=== PATIENT | female | born 1985 | race Two or more races ===

== ENCOUNTER 2019-03-02 16:11 | Emergency (ER) | payer OTHER ==
[~2019-03-02] VITALS: Ht 157.5 cm; Wt 111.4 kg
[2019-03-02] MEDS ORDERED: LEVO75 PO (16:16)
[2019-03-02] MEDS ORDERED: LIDOCAINE 1% 10 ML VIAL INJ ONE (17:00)
[2019-03-02] MEDS ORDERED: POVIDONE-IODINE 10% 15 ML SOLUTION UD TP ONE (17:00)
[2019-03-02 18:02] VITALS: BP 125/70
== END 2019-03-02 18:11 | disposition home or self-care (01) ==
LOC: EMS 16:12
DX: S20.151A Superficial foreign body of breast, right breast, initial encounter (principal); R03.0 Elevated blood-pressure reading, without diagnosis of hypertension; E03.9 Hypothyroidism, unspecified; W45.8XXA Other foreign body or object entering through skin, initial encounter; Y93.89 Activity, other specified; Y92.89 Other specified places as the place of occurrence of the external cause; Y99.8 Other external cause status
CPT/HCPCS: 99284; J3490